=== PATIENT | female | born 1950 | race Caucasian/White ===

== ENCOUNTER 2020-01-05 12:06 | Emergency (ER) | payer MEDICARE, OTHER ==
[2020-01-05] MEDS ORDERED: ONDANSETRON HCL INJ/PF 4 MG/2 ML SDV IV ONE (12:20)
--- NOTE | 2020-01-05 12:24 | ER Document Report ---
ED Medical Screen (RME) - General Chief Complaint: Pain With Urination Stated Complaint: PAINFUL URINATION Time Seen by Provider: 01/05/20 12:08 Mode of Arrival: Medic Information source: Patient - HPI Notes: 01/05/20 12:18 69-year-old female with a history of diverticulitis and colitis presents emergency room via EMS for complaints of abdominal pain, painful urination with diarrhea that started yesterday. Patient is a poor historian. patient went to [facility] in [place] yesterday, states they gave her some fluids, did some test and discharged her. Reports pain is 4 out of 5. Denies any chest pain. States that when her pain becomes excruciating it does make her feel like she is short of breath but otherwise denies any shortness of breath. Denies any fevers or chills. Patient states that she did have incontinence due to dysuria for the last 3 weeks that has not been "treated correctly". I have greeted and performed a rapid initial assessment of this patient. A comprehensive ED assessment and evaluation of the patient, analysis of test results and completion of the medical decision making process will be conducted by additional ED providers. PHYSICAL EXAMINATION: GENERAL: Well-appearing, well-nourished and in moderate distress CV: s1, s2 regular LUNGS: No respiratory distress abd: generalized abdominal pain Musculoskeletal: Normal range of motion NEUROLOGICAL: Normal speech, in wheelchair. SKIN: Warm, Dry, normal turgor, no rashes or lesions noted.. 01/05/20 12:20 Physical Exam - Vital signs Vitals: Temp Pulse Resp BP Pulse Ox 97.4 F 77 18 144/88 H 99 01/05/20 12:13 01/05/20 12:13 01/05/20 12:13 01/05/20 12:13 01/05/20 12:13 Course - Vital Signs Vital signs: Temp Pulse Resp BP Pulse Ox 97.4 F 77 18 144/88 H 99 01/05/20 12:13 01/05/20 12:13 01/05/20 12:13 01/05/20 12:13 01/05/20 12:13
[2020-01-05 13:06] LABS: ABSOLUTE LYMPHOCYTES (AUTO) 1.2 10^3/uL (0.5-4.7); ABSOLUTE MONOCYTES (AUTO) 0.5 10^3/uL (0.1-1.4); ABSOLUTE NEUT (AUTO) 4.5 10^3/uL (1.7-8.2); BASOPHILS % (AUTO) 0.4 % (0-2); EOSINOPHILS % (AUTO) 0.4 % (0-6); HEMATOCRIT 37.3 % (36.0-47.0); HEMOGLOBIN 13.4 g/dL (12.0-15.5); LYMPHOCYTES % (AUTO) 19.7 % (13-45); MEAN CORPUSCULAR HEMOGLOBIN 32.5 pg (27.0-33.4); MEAN CORPUSCULAR HGB CONC 35.9 g/dL (32.0-36.0); MEAN CORPUSCULAR VOLUME 91 fl (80-97); MONOCYTES % (AUTO) 7.3 % (3-13); PLATELET COUNT 266 10^3/uL (150-450); RED BLOOD COUNT 4.12 10^6/uL (3.72-5.28); RED CELL DISTRIBUTION WIDTH 16.7 % (11.5-14.0); SEGMENTED NEUTROPHILS % (AUTO) 72.2 % (42-78); TOTAL CELLS COUNTED % (AUTO) 100 %; WHITE BLOOD COUNT 6.2 10^3/uL (4.0-10.5)
[2020-01-05] MEDS: MORPHINE SULFATE 10 MG/ML INJ IV PRN ×2 (13:09→17:38)
--- NOTE | 2020-01-05 13:17 | EKG REPORT ---
SEVERITY:- ABNORMAL ECG - SINUS RHYTHM LEFT AXIS DEVIATION LEFT VENTRICULAR HYPERTROPHY : Confirmed by: Ray Kwan MD 05-Jan-2020 13:16:12
[2020-01-05 13:26] LABS: ALBUMIN 4.1 g/dL (3.5-5.0); ALKALINE PHOSPHATASE 114 U/L (38-126); ANION GAP 12 (5-19); ASPARTATE AMINO TRANSFERASE 38 U/L (14-36); BILIRUBIN,TOTAL 0.7 mg/dL (0.2-1.3); BLOOD UREA NITROGEN 6 mg/dL (7-20); CALCIUM 9.9 mg/dL (8.4-10.2); CARBON DIOXIDE 22 mmol/L (22-30); CHLORIDE 91 mmol/L (98-107); GLUCOSE 110 mg/dL (75-110); POTASSIUM 3.7 mmol/L (3.6-5.0); TOTAL PROTEIN 6.7 g/dL (6.3-8.2)
--- NOTE | 2020-01-05 13:58 | RADIOLOGY REPORT (SQ) ---
EXAM DESCRIPTION: CHEST 2 VIEWS IMAGES COMPLETED DATE/TIME: 01/05/2020 1:37 pm REASON FOR STUDY: Diaphoretic COMPARISON: None. EXAM PARAMETERS: NUMBER OF VIEWS: two views TECHNIQUE: Digital Frontal and Lateral radiographic views of the chest acquired. RADIATION DOSE: NA LIMITATIONS: none FINDINGS: LUNGS AND PLEURA: No opacities, masses or pneumothorax. No pleural effusion. MEDIASTINUM AND HILAR STRUCTURES: No masses or contour abnormalities. HEART AND VASCULAR STRUCTURES: Heart normal size. No evidence for failure. BONES: No acute findings. HARDWARE: None in the chest. OTHER: No other significant finding. IMPRESSION: NO ACUTE RADIOGRAPHIC FINDING IN THE CHEST. TECHNICAL DOCUMENTATION: JOB ID: [id number] 2010 [employer]- All Rights Reserved Reading location - IP/workstation name: [email or web address]
[2020-01-05 14:02] LABS: APPEARANCE,URINE CLEAR; BILIRUBIN,URINE NEGATIVE (NEGATIVE); COLOR,URINE COLORLESS; GLUCOSE, URINE NEGATIVE (NEGATIVE); KETONES,URINE NEGATIVE (NEGATIVE); LEUKOCYTE ESTERASE,URINE NEGATIVE (NEGATIVE); NITRITE,URINE NEGATIVE (NEGATIVE); PROTEIN,URINE NEGATIVE (NEGATIVE); URINE SPECIFIC GRAVITY 1.005; UROBILINOGEN,URINE NEGATIVE mg/dL (<2.0)
[2020-01-05] MEDS ORDERED: RINGERS SOLUTION,LACTATED 1,000 ML IV ONE (14:35)
--- NOTE | 2020-01-05 15:39 | RADIOLOGY REPORT (SQ) ---
EXAM DESCRIPTION: CT ABD/PELVIS WITH IV ONLY IMAGES COMPLETED DATE/TIME: 01/05/2020 1:53 pm REASON FOR STUDY: abd pain COMPARISON: None. TECHNIQUE: CT scan of the abdomen and pelvis performed using helical scanning technique with dynamic intravenous contrast injection. No oral contrast. Images reviewed with lung, soft tissue, and bone windows. Reconstructed coronal and sagittal MPR images reviewed. Delayed images for evaluation of the urinary system also acquired. All images stored on PACS. All CT scanners at this facility use dose modulation, iterative reconstruction, and/or weight based d osing when appropriate to reduce radiation dose to as low as reasonably achievable (ALARA). [facility]: Dose Right [facility]: CareDose [facility]: Dose Right [facility]: Teradose 4D [facility]: Digerati CONTRAST TYPE AND DOSE: contrast/concentration: Isovue 350.00 mmol/ml; Total Contrast Delivered: 100 .0 ml; Total Saline Delivered: 72.0 ml RENAL FUNCTION: Creatinine 0.7 RADIATION DOSE: CT Rad equipment meets quality standard of care and radiation dose reduction techniq ues were employed. CTDIvol: 17.6 - 20.4 mGy. DLP: 2333 mGy-cm.. LIMITATIONS: None. FINDINGS: LOWER CHEST: There are scattered subtle nonspecific bibasilar peripheral prominent ground- glass opacities. Coronary atherosclerosis. LIVER: Normal size. No masses. No dilated ducts. SPLEEN: Normal size. No focal lesions. PANCREAS: No masses. No significant calcifications. No adjacent inflammation or peripancreatic fluid collections. Pancreatic duct not dilated. GALLBLADDER: Absent. ADRENAL GLANDS: No significant masses or asymmetry. RIGHT KIDNEY AND URETER: No solid masses. 3.4 cm lower pole right renal cyst. No significant calci fications. No hydronephrosis or hydroureter. LEFT KIDNEY AND URETER: No solid masses. No significant calcifications. No hydronephrosis or hydr oureter. AORTA AND VESSELS: No aneurysm. No dissection. Renal arteries, SMA, celiac without stenosis. RETROPERITONEUM: No retroperitoneal adenopathy, hemorrhage or masses. BOWEL AND PERITONEAL CAVITY: No evidence of intestinal obstruction. No focal bowel wall thickening. Few scattered colonic diverticula. APPENDIX: Surgically absent. PELVIS: Unremarkable urinary bladder. Status post hysterectomy. No free fluid or lymphadenopathy. ABDOMINAL WALL: No masses. No hernias. BONES: No acute bony abnormality. No discrete lytic lesions. Sclerotic focus within the left femora l head suggestive of avascular necrosis. Partially visualized right hip arthroplasty. OTHER: No other significant finding. IMPRESSION: 1. Scattered subtle bibasilar peripheral prominent ground-glass opacities. Imaging fea tures can be seen with Covid-19 pneumonia, though are nonspecific and can occur with a variety of inf ectious and noninfectious processes. 2. No evidence of acute intra-abdominal/pelvic process. Incidental findings as above. Findings discussed with Aminah Simms at 1427 hours on 01/05/2020. TECHNICAL DOCUMENTATION: JOB ID: [id number] Quality ID # [id number]: Final reports with documentation of one or more dose reduction techniques (e.g., Au tomated exposure control, adjustment of the mA and/or kV according to patient size, use of iterative reconstruction technique) 2010 [employer]- All Rights Reserved Reading location - IP/workstation name: [email or web address]
--- NOTE | 2020-01-05 16:17 | ER Document Report ---
ED GI/ <HORTENSIAARMINDA - Last Filed: 01/06/20 05:35> - General Mode of Arrival: Medic Information source: Patient TRAVEL OUTSIDE OF THE [place] IN LAST 30 DAYS: No <BEBA DILLARD - Last Filed: 01/06/20 15:50> - General Chief Complaint: Lower Abdominal Pain Stated Complaint: PAINFUL URINATION Time Seen by Provider: 01/05/20 12:08 Primary Care Provider: GIULIA MARTIN PA-C [Primary Care Provider] - Follow up as needed Notes: 69-year-old female past medical history significant for diverticulitis, colitis, hypertension, bipolar presents to the emergency room complaining of worsening ab dominal cramping, painful urination, that has been ongoing for several weeks. States she started with diarrhea this morning and only had 3 episodes at home. States she saw her primary care physician 2 days ago was diagnosed with a current UTI was placed on Cipro. Also states that she was seen at [facility] yesterday had labs done they told her there was nothing wrong and discharged home. Patient still complains of frequent urination with cramping abdominal pain. She denies any recent travel. She denies any COVID-19 exposure. States she had a negative cover test 2 weeks ago because she was scheduled for colonoscopy and an endoscopy which she states were both normal. Patient states she lives alone does not have anyone at home to care for her or help her denies any frequent falls. States she is taking her medications as prescribed. Denies any chest pain, shortness of breath, no difficulty breathing. (BEBA DILLARD) - Related Data Allergies/Adverse Reactions: codeine Allergy (Verified 01/05/20 12:25) Past Medical History - General Information source: Patient - Social History Smoking Status: Never Smoker Frequency of alcohol use: None Drug Abuse: None Family History: Other - Patient poor historian does not know her family history Patient has homicidal ideation: No <BEBA DILLARD - Last Filed: 01/06/20 15:50> Review of Systems - Review of Systems Constitutional: No symptoms reported EENT: No symptoms reported Cardiovascular: No symptoms reported Respiratory: No symptoms reported Gastrointestinal: Abdominal pain, Diarrhea. denies: Nausea, Vomiting Genitourinary: Frequency Musculoskeletal: No symptoms reported Skin: No symptoms reported Neurological/Psychological: No symptoms reported -: Yes All other systems reviewed and negative <BEBA DILLARD - Last Filed: 01/06/20 15:50> Physical Exam - General General appearance: Appears well, Alert In distress: Mild - HEENT Head: Normocephalic, Atraumatic Eyes: Normal Extraocular movements intact: Yes Pupils: PERRL - Respiratory Respiratory status: Tachypnea Chest status: Nontender Breath sounds: Normal Chest palpation: Normal - Cardiovascular Rhythm: Regular Heart sounds: Normal auscultation Murmur: No - Abdominal Inspection: Normal Distension: No distension Bowel sounds: Normal Tenderness: Tender - Tenderness in the lower pelvic region, no guarding, no rebound Organomegaly: No organomegaly - Back Back: Normal, Nontender. 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 - Psychological Associated symptoms: Normal affect, Normal mood, Decreased appetite - Skin Skin Temperature: Warm Skin Moisture: Dry Skin Color: Normal <BEBA DILLARD - Last Filed: 01/06/20 15:50> - Vital signs Vitals: Temp Pulse Resp BP Pulse Ox 97.4 F 77 18 144/88 H 99 01/05/20 12:13 01/05/20 12:13 01/05/20 12:13 01/05/20 12:13 01/05/20 12:13 Course - Laboratory Result Diagrams: 01/06/20 02:10 01/06/20 02:10 <ARMINDA BOLAÑOS - Last Filed: 01/06/20 05:35> - Laboratory Result Diagrams: 01/06/20 08:02 01/06/20 08:02 - Diagnostic Test Radiology reviewed: Reports reviewed - EKG Interpretation by Me EKG shows normal: Sinus rhythm - 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 I went and evaluated the patient. Patient is alert, oriented, denies any acute complaints. She does not have any chest pain or shortness of breath. She states she feels well other than some mild back pain which she reports is chronic for her. Her lungs are clear and equal bilaterally. She will be given a 1 L normal saline bolus to see if this helps with her blood pressure. We will also obtain repeat labs. I did consult attending physician Dr. Leora Morelos regarding this patient and her hypotension. We will continue to closely monitor. Patient's nurse has been reevaluating patient's blood pressure. Her blood pressure has come up. She continues to be asymptomatic. Currently awaiting repeat labs. Labs have resulted. Her hemoglobin has dropped although there is some question if this is delusional. Her creatinine has risen. I went in to reevaluate the patient. The patient continues to be alert, oriented, no acute distress noted. She denies any complaints at this time. She denies any passage of any bloody or dark stools. I did do a Hemoccult which was negative for any blood. I did find 2 pills in the bed with her when I went in to do the Hemoccult. These were lisinopril 10 mg tablets. The patient reports that she took her nighttime medications out of her belongings. For safety the medications were relocated to the nurses station. Discussed situation with attending Dr. Denny who advises that I should call the hospitalist to re-consult due to her change in labs. 01/06/20 04:53 Called and discussed patients repeat labs with Dr. Baker. He does not feel patient needs to be admitted at this time. We will re-check labs in the am. Orders placed for 0800 for repeat CBC, BMP and lactic. (ARMINDA BOLAÑOS) 01/05/20 16:16 Patient is resting comfortably currently denying any pain. Reviewed lab, x-ray, and CAT scan results with patient. Aware of need for COVID testing. Patient states she did have a negative cover test 2 weeks ago. And denies any recent travel or COVID-19 exposure. Discussed with her the need to be tested secondary to CT findings. Patient is agreeable to be tested. Patient also continues to be short of breath. Case was staffed with ED physician Dr. Davidson who agrees on need for a CTA to rule out a PE. She is agreeable to testing. We will also get ABG, patient will be placed on 2 L of nasal cannula oxygen after the ABG is completed. 01/05/20 17:54 Patient was seen and evaluated by myself and Dr. Davidson will call hospitalist and attempt to admit for hyponatremia and elevated lactic with no known source. 01/05/20 19:02 Was seen and evaluated by hospitalist nurse practitioner Kimberly Brush who does not feel that patient does not meet criteria for in-house admission. Recommendations were made for psych consult as well as social work consult for safety issues. As patient lives alone is not taking care of her self, is not taking her medications as prescribed. Has no one to help her at home. We will make her social hold and wait for eval's by psychiatry and social work. 01/05/20 19:50 01/05/20 20:10 patient care was transferred to Arminda Bolaños NP, discussed all findings and need for Social Hold for Psych and Social Work consults tomorrow. 01/06/20 13:26 Patient currently resting comfortably sitting up in bed eating. She offers no complaints at this time. Pending psych and social work recommendations 01/06/20 15:46 Patient is resting comfortably she has no acute distress at this time. Vital signs and labs are stable. Patient has been seen and evaluated by social work administrator as well as our mental health department. Home health and social work outpatient has been set up by [facility] ED. patient is aware that this is been scheduled. Has a friend who is picking her up and driving her home. She is to follow-up outpatient with her primary care physician as well as her mental health specialist. Patient was given strict return to the emergency room guidelines. Return for any new or worsening symptoms. All questions were answered. Patient verbalized understanding and agrees with plan of care. 01/06/20 15:50 (BEBA DILLARD) - Vital Signs Vital signs: Temp Pulse Resp BP Pulse Ox 98.0 F 80 16 102/64 94 01/06/20 04:25 01/06/20 04:25 01/06/20 04:25 01/06/20 04:25 01/06/20 04:25 - Laboratory Laboratory results interpreted by me: 01/05/20 01/05/20 01/05/20 12:53 12:53 12:53 RBC Hgb Hct RDW 16.7 H Carbonic Acid ABG pH ABG pCO2 ABG HCO3 ABG Total CO2 Sodium 125.1 L Chloride 91 L BUN 6 L Creatinine Est GFR ( Amer) Est GFR (MDRD) Non-Af Glucose Lactic Acid 2.3 H Calcium AST 38 H Creatine Kinase Total Protein Albumin 01/05/20 01/05/20 01/06/20 12:53 16:58 02:10 RBC 3.38 L Hgb 10.8 L D Hct 31.8 L RDW 16.6 H Carbonic Acid 0.67 L ABG pH 7.52 H ABG pCO2 22.1 L ABG HCO3 17.8 L ABG Total CO2 18.5 L Sodium Chloride BUN Creatinine Est GFR ( Amer) Est GFR (MDRD) Non-Af Glucose Lactic Acid Calcium AST Creatine Kinase 152 H Total Protein Albumin 01/06/20 01/06/20 01/06/20 02:10 02:10 08:02 RBC 3.56 L Hgb 11.4 L Hct 33.4 L RDW 17.5 H Carbonic Acid ABG pH ABG pCO2 ABG HCO3 ABG Total CO2 Sodium 127.4 L Chloride BUN Creatinine 1.36 H Est GFR ( Amer) 46 L Est GFR (MDRD) Non-Af 38 L Glucose 134 H Lactic Acid 2.5 H Calcium 8.3 L AST Creatine Kinase Total Protein 5.1 L Albumin 2.9 L 01/06/20 08:02 RBC Hgb Hct RDW Carbonic Acid ABG pH ABG pCO2 ABG HCO3 ABG Total CO2 Sodium 127.1 L Chloride 95 L BUN Creatinine Est GFR ( Amer) 55 L Est GFR (MDRD) Non-Af 46 L Glucose 125 H Lactic Acid Calcium AST Creatine Kinase Total Protein Albumin - EKG Interpretation by Me Additional EKG results interpreted by me: 01/05/20 12:40 EKG was interpreted by Ed MD Dr. Parker Sinus rhythm Left axis deviation LV[facility] No acute STEMI (BEBA DILLARD) Discharge <ARMINDA BOLAÑOS - Last Filed: 01/06/20 05:35> <BEBA DILLARD - Last Filed: 01/06/20 15:50> - Discharge Clinical Impression: Urinary frequency, Chronic hyponatremia Condition: Stable Disposition: HOME, SELF-CARE Instructions: Hyponatremia ([facility]), Hypotension ([facility]) Additional Instructions: Continue with your current medications. Increase your fluid intake. Avoid caffeine products. Outpatient follow-up with your primary care physician and your therapist. Home health and social work has been scheduled through [facility]. Return to the emergency room for any new or worsening symptoms. Referrals: GIULIA MARTIN PA-C [Primary Care Provider] - Follow up as needed
[2020-01-05 17:20] LABS: ARTERIAL BLOOD H2CO3 0.67 mmol/L (1.05-1.35); ARTERIAL BLOOD HCO3 17.8 mmol/L (20-24); ARTERIAL BLOOD PCO2 22.1 mmHg (35-45); ARTERIAL BLOOD PH 7.52 (7.35-7.45); ARTERIAL BLOOD PO2 94.9 mmHg (80-100); ARTERIAL BLOOD TOTAL CO2 18.5 mmol/L (21-25)
[2020-01-05 17:24] LABS: ARTERIAL BLOOD FIO2 ROOM AIR
--- NOTE | 2020-01-05 17:35 | RADIOLOGY REPORT (SQ) ---
EXAM DESCRIPTION: NM LUNG PERF SCAN IMAGES COMPLETED DATE/TIME: 01/05/2020 5:22 pm REASON FOR STUDY: dyspnea COMPARISON: None. RADIONUCLIDE AND DOSE: 5.46 millicuries TC-99m MAA Intravenous TECHNIQUE: Eight views of the lungs acquired post ventilation of DTPA aerosol. Eight matching views of the lungs acquired following injection of MAA. LIMITATIONS: None. FINDINGS: PERFUSION: Perfusion images with normal homogenous activity and no wedge-shaped or segment al defects. No ventilation-perfusion mismatches. OTHER: No other significant finding. IMPRESSION: NORMAL PERFUSION LUNG SCAN. NEGATIVE FOR PULMONARY EMBOLI. TECHNICAL DOCUMENTATION: JOB ID: [id number] 2010 [employer]- All Rights Reserved Reading location - IP/workstation name: [email or web address]
--- NOTE | 2020-01-05 18:07 | ER Document Report ---
Doctor's Note Notes: 01/05/20 18:03 This is a 69-year-old female I was asked to evaluate along with midlevel provider. I have reviewed their work-up and interviewed the patient at the bedside and reviewed pertinent physical exam. This is an elderly lady within the last 6 months who has moved to a new home with limited social support. She has a history of bipolar disorder and a number of other relatively chronic medical conditions currently taking a large number of medications. She has visited emergency department's here and in [facility] a total of 5 times within the last week. She is a rather poor historian but complains primarily at this time of generalized weakness and polyuria. Extensive work-up is shown that this lady is mildly hyponatremic and she also has an elevated lactate of 2.3. She has no clear-cut source of infection and is afebrile here. This is probably related to medications. She is clearly having difficulty caring for herself at this point and I would feel that she would be at a significant risk of falling and sustaining injury if she is discharged this time. I have recommended evaluation by the hospitalist for overnight observation with IV hydration and follow-up labs.
--- NOTE | 2020-01-05 19:27 | PDOC CONSULTATION ---
Consultation Consult Date: 01/05/20 Provider Consulted: ADALID ENAMORADO History of Present Illness Admission Date/PCP: GIULIA MARTIN PA-C Patient complains of: generalized weakness History of Present Illness: BALDO GRAHAM is a 69 year old female with a past medical history significant for bipolar disorder, diverticulitis, and colitis who reports multiple complaints and provider visits over the last week. - [facility] numerous complaints (muscle cramping, generalized weakness, falls, poor appetite, abdominal pain, back pain, nausea without emesis, and diarrhea). - She reports that she was seen by her primary care provider on Friday for increased urinary frequency; reports that she was started on an antibiotic for UTI. - She reports that she had an EGD and colonoscopy by Dr. Barkley completed last week; diagnosis of diverticulosis without diverticulitis, irritable bowel syndrome diarrhea predominant, and gastritis. She states that she was started on a PPI and fiber. She reports that her follow-up for biopsy of polyps is scheduled for Friday. - Patient states that she presented to the emergency department here today with generalized weakness, abdominal pain, dysuria, and diarrhea that began yesterday. - Upon my evaluation of the patient, her primary complaint is muscle cramps to bilateral lower extremities, bilateral pedal edema (none present at this time), and neuropathy that prohibit her ability to ambulate and care for herself. When prompted to discuss her other provider visits and evaluations, the patient becomes very disorganized in her history and is unable to clearly provide a chronological timeline of her symptoms, provider visits, and recommendations. Further, she was unable to elaborate on her concerns prompting her ED visit today (sought clarification on muscle cramping/leg edema versus abdominal discomfort and diarrhea). Unfortunately, the patient became very tearful, emotionally distressed, and repetitively asked that we not discharge her before we find out what is wrong with her, " I know all of my tests are normal, but I know something is wrong." --- Evaluation in the emergency department was thorough; Vital signs are stable (afebrile, heart rate 60s to 70s, normotensive, respiratory rate 16-20, SPO2 within normal limits on room air). Laboratory evaluation was overall benign. CBC normal. Chemistry reveals hyponatremia (NA 125; confirmed to be chronic per patient report and attributed to her psychiatric medications and furosemide use). A ABG revealed respiratory alkalosis (patient observed to be hyperventilating during our discussion). Negative urinalysis. Notably, her lactic acid was elevated to 2.3 without clear cause. COVID-19 pending. Chest x-ray is benign. CT abdomen pelvis incidentally found groundglass opacities to the bilateral lung bases. Otherwise no acute findings. VQ scan negative for PE. Past Medical History Endocrine Medical History: Reports: Obesity Renal/ Medical History: Reports: None Malignancy Medical History: Reports: None GI Medical History: Reports: Gastroesophageal Reflux Disease, Other - Diverticulosis, IBS D Psychiatric Medical History: Reports: Bipolar Disorder, Depression, General Anxiety Disorder Hematology: Reports: None Infectious Medical History: Reports: None Social History Information Source: Patient Lives with: Alone Smoking Status: Unknown if Ever Smoked Electronic Cigarette use?: No Frequency of Alcohol Use: None Hx Recreational Drug Use: No Hx Prescription Drug Abuse: No Family History Parental Family History Reviewed: Yes Children Family History Reviewed: Yes Sibling(s) Family History Reviewed.: Yes Medication/Allergy Allergies/Adverse Reactions: codeine Allergy (Verified 01/05/20 12:25) Review of Systems Constitutional: PRESENT: anorexia, fatigue, weakness. ABSENT: chills, fever(s), headache(s), weight gain, weight loss Eyes: ABSENT: visual disturbances Ears: ABSENT: hearing changes Cardiovascular: PRESENT: edema. ABSENT: chest pain, dyspnea on exertion, orthropnea, palpitations Respiratory: ABSENT: cough, hemoptysis Gastrointestinal: PRESENT: abdominal pain, diarrhea, nausea. ABSENT: constipation, hematemesis, hematochezia, vomiting Genitourinary: PRESENT: dysuria. ABSENT: hematuria Musculoskeletal: PRESENT: back pain. ABSENT: joint swelling Integumentary: PRESENT: diaphoresis. ABSENT: rash, wounds Neurological: PRESENT: frequent falls, paresthesias, tingling, weakness. ABSENT: abnormal gait, abnormal speech, confusion, dizziness, focal weakness, syncope Psychiatric: PRESENT: anxiety, depression. ABSENT: homidical ideation, suicidal ideation Endocrine: ABSENT: cold intolerance, heat intolerance, polydipsia, polyuria Hematologic/Lymphatic: ABSENT: easy bleeding, easy bruising Physical Exam Vital Signs: Temp Pulse Resp BP Pulse Ox 97.4 F 77 16 153/71 H 98 01/05/20 12:13 01/05/20 12:13 01/05/20 16:01 01/05/20 16:01 01/05/20 16:01 Intake & Output 01/04/20 01/05/20 01/06/20 06:59 06:59 06:59 Intake Total 1000 Balance 1000 Weight 99.79 kg General appearance: PRESENT: no acute distress, disheveled, obese, well- developed, well-nourished Head exam: PRESENT: atraumatic, normocephalic Eye exam: PRESENT: conjunctiva pink, EOMI, PERRLA. ABSENT: scleral icterus Mouth exam: PRESENT: moist, tongue midline Respiratory exam: PRESENT: clear to auscultation bernie, symmetrical, tachypnea - Intermittent periods of tachypnea; appears to be related to emotional distress, unlabored, other - Maintaining oxygen saturations of 98% or higher on room air. ABSENT: rales, rhonchi, wheezes Cardiovascular exam: PRESENT: RRR, +S1, +S2. ABSENT: diastolic murmur, rubs, systolic murmur Pulses: PRESENT: normal dorsalis pedis pul Vascular exam: PRESENT: normal capillary refill GI/Abdominal exam: PRESENT: normal bowel sounds, soft, tenderness. ABSENT: distended, guarding, mass, organolmegaly, rebound Rectal exam: PRESENT: deferred Extremities exam: PRESENT: full ROM. ABSENT: calf tenderness, clubbing, pedal edema, +1 edema Neurological exam: PRESENT: alert, awake, oriented to person, oriented to place, oriented to time, oriented to situation, CN II-XII grossly intact. ABSENT: motor sensory deficit Psychiatric exam: PRESENT: anxious, depressed Skin exam: PRESENT: dry, intact, warm. ABSENT: cyanosis, rash Results Laboratory Results: 01/05/20 12:53 01/05/20 12:53 01/05/20 01/05/20 01/05/20 12:53 12:53 12:53 WBC 6.2 RBC 4.12 Hgb 13.4 Hct 37.3 MCV 91 MCH 32.5 MCHC 35.9 RDW 16.7 H Plt Count 266 Seg Neutrophils % 72.2 Carbonic Acid HCO3/H2CO3 Ratio ABG pH ABG pCO2 ABG pO2 ABG HCO3 ABG O2 Saturation ABG Base Excess FiO2 Sodium 125.1 L Potassium 3.7 Chloride 91 L Carbon Dioxide 22 Anion Gap 12 BUN 6 L Creatinine 0.77 Est GFR ( Amer) > 60 Glucose 110 Lactic Acid 2.3 H Calcium 9.9 Total Bilirubin 0.7 AST 38 H Alkaline Phosphatase 114 Total Protein 6.7 Albumin 4.1 Lipase 104.3 Urine Color Urine Appearance Urine pH Ur Specific [place] Urine Protein Urine Glucose (UA) Urine Ketones Urine Blood Urine Nitrite Ur Leukocyte Esterase Urine WBC (Auto) Urine RBC (Auto) 01/05/20 01/05/20 13:20 16:58 WBC RBC Hgb Hct MCV MCH MCHC RDW Plt Count Seg Neutrophils % Carbonic Acid 0.67 L HCO3/H2CO3 Ratio 26:1 ABG pH 7.52 H ABG pCO2 22.1 L ABG pO2 94.9 ABG HCO3 17.8 L ABG O2 Saturation 98.0 ABG Base Excess -3.0 FiO2 ROOM AIR Sodium Potassium Chloride Carbon Dioxide Anion Gap BUN Creatinine Est GFR ( Amer) Glucose Lactic Acid Calcium Total Bilirubin AST Alkaline Phosphatase Total Protein Albumin Lipase Urine Color COLORLESS Urine Appearance CLEAR Urine pH 8.0 Ur Specific [place] 1.005 Urine Protein NEGATIVE Urine Glucose (UA) NEGATIVE Urine Ketones NEGATIVE Urine Blood NEGATIVE Urine Nitrite NEGATIVE Ur Leukocyte Esterase NEGATIVE Urine WBC (Auto) 0 Urine RBC (Auto) 0 01/05/20 01/05/20 01/05/20 12:53 12:53 12:53 Creatine Kinase 152 H CK-MB (CK-2) 1.30 Troponin I < 0.012 01/05/20 17:52 Creatine Kinase CK-MB (CK-2) Troponin I < 0.012 Impressions: Abdomen/Pelvis CT 01/05/20 12:10 IMPRESSION: 1. Scattered subtle bibasilar peripheral prominent ground-glass opacities. Imaging features can be seen with Covid-19 pneumonia, though are nonspecific and can occur with a variety of infectious and noninfectious process es. 2. No evidence of acute intra-abdominal/pelvic process. Incidental findings as above. Findings discussed with Aminah Simms at 1427 hours on 01/05/2020. Chest X-Ray 01/05/20 12:12 IMPRESSION: NO ACUTE RADIOGRAPHIC FINDING IN THE CHEST. Lung Scan-VQ NM 01/05/20 16:23 IMPRESSION: NORMAL PERFUSION LUNG SCAN. NEGATIVE FOR PULMONARY EMBOLI. Assessment and Plan - Diagnosis (1) Lactic acidosis Is this a current diagnosis for this admission?: Yes Plan: Mildly elevated lactic acid to 2.3. Vital signs are stable. No indications of infectious source at this time. Perhaps related to medication process. She is already received 1 L IV fluids by ED provider. Recommend continue to monitor for evidence of systemic infection. (2) Chronic hyponatremia Is this a current diagnosis for this admission?: Yes Plan: Mild hyponatremia; 125. Patient confirms she has a history of hyponatremia. She tells me that she was told that her sodium was low when she was seen at [facility] earlier this week. She confirms that she was told at that time that it was likely related to her home medication regiment. Unfortunately, she cannot recall what her exact numbers were. The patient is alert and oriented x4. Hyponatremia is likely chronic. She is already received 1 L IV fluids by the ED provider. Would recommend moderate fluid restriction; 1.5 L daily. Liberalize dietary sodium (regular diet). Monitor for polydipsia (this would explain both her hyponatremia as well as her urinary frequency complaint). Consider thyroid panel. As the patient is remaining in the ED overnight for psychiatric evaluation in the morning; may be worthwhile to repeat chemistry in the morning to establish stability. (3) Generalized weakness Is this a current diagnosis for this admission?: Yes Plan: Recommend discharge planning/social work consultation. Patient would benefit from home health services. Given her age and underlying medical conditions, she may also benefit from [facility] placement. However, recognize this would need to be arranged as an outpatient through her PCP and highly dependent upon her financial/insurance status. (4) Falls Is this a current diagnosis for this admission?: Yes Plan: Fall precautions. (5) Diarrhea Qualifiers: Diarrhea type: functional diarrhea Qualified Code(s): K59.1 - Functional diarrhea Is this a current diagnosis for this admission?: Yes Plan: Patient confirms diagnosis of IBS-D by Dr. Barkley. Continue bowel regiment w/ fiber supplementation. Follow up with Dr. Barkley, as scheduled, on Friday. Would defer novel medication management (i.e. Rifaximin, Viberzi, etc) to Dr. Barkley. She might benefit from Questran (bile acid binder) or Bentyl. (6) Bipolar disorder Is this a current diagnosis for this admission?: Yes Plan: Strongly recommend psychiatric evaluation with medication review. If appropriate, some tricyclic antidepressants have been used effectively for IBS-D. Certainly her medication regiment may be at the root of her chronic hyponatremia. Patient may also benefit from a community steel buffer or an ACT team support system, if available. Discharge planning is consulted. - Time Time Spent with patient: 35 or more minutes
[2020-01-05] MEDS ORDERED: SILVER SULFADIAZINE 1% CREAM 400 GM TP ONE (23:20)
[2020-01-05] MEDS ORDERED: MORPHINE SULFATE 10 MG/ML INJ IV ONE (23:20)
[2020-01-05] MEDS ORDERED: CEPHALEXIN 500 MG CAPSULE PO ONE (23:20)
[2020-01-06 02:31] LABS: ABSOLUTE LYMPHOCYTES (AUTO) 0.9 10^3/uL (0.5-4.7); ABSOLUTE MONOCYTES (AUTO) 0.6 10^3/uL (0.1-1.4); ABSOLUTE NEUT (AUTO) 4.4 10^3/uL (1.7-8.2); BASOPHILS % (AUTO) 0.3 % (0-2); EOSINOPHILS % (AUTO) 0.5 % (0-6); HEMATOCRIT 31.8 % (36.0-47.0); LYMPHOCYTES % (AUTO) 15.6 % (13-45); MEAN CORPUSCULAR HGB CONC 33.9 g/dL (32.0-36.0); MEAN CORPUSCULAR VOLUME 94 fl (80-97); MONOCYTES % (AUTO) 10.8 % (3-13); PLATELET COUNT 216 10^3/uL (150-450); RED BLOOD COUNT 3.38 10^6/uL (3.72-5.28); RED CELL DISTRIBUTION WIDTH 16.6 % (11.5-14.0); SEGMENTED NEUTROPHILS % (AUTO) 72.8 % (42-78); TOTAL CELLS COUNTED % (AUTO) 100 %
[2020-01-06 02:32] LABS: HEMOGLOBIN 10.8 g/dL (12.0-15.5)
[2020-01-06 02:46] LABS: ALBUMIN 2.9 g/dL (3.5-5.0); ALKALINE PHOSPHATASE 65 U/L (38-126); ANION GAP 6 (5-19); ASPARTATE AMINO TRANSFERASE 31 U/L (14-36); BILIRUBIN,TOTAL 0.3 mg/dL (0.2-1.3); BLOOD UREA NITROGEN 7 mg/dL (7-20); CALCIUM 8.3 mg/dL (8.4-10.2); CARBON DIOXIDE 23 mmol/L (22-30); CHLORIDE 98 mmol/L (98-107); GLUCOSE 134 mg/dL (75-110); TOTAL PROTEIN 5.1 g/dL (6.3-8.2)
[2020-01-06 04:26] VITALS: BP 102/64
[2020-01-06 08:12] LABS: ABSOLUTE LYMPHOCYTES (AUTO) 1.3 10^3/uL (0.5-4.7); ABSOLUTE MONOCYTES (AUTO) 0.6 10^3/uL (0.1-1.4); BASOPHILS % (AUTO) 0.3 % (0-2); HEMATOCRIT 33.4 % (36.0-47.0); HEMOGLOBIN 11.4 g/dL (12.0-15.5); LYMPHOCYTES % (AUTO) 26.5 % (13-45); MEAN CORPUSCULAR HGB CONC 34.1 g/dL (32.0-36.0); MEAN CORPUSCULAR VOLUME 94 fl (80-97); MONOCYTES % (AUTO) 12.4 % (3-13); PLATELET COUNT 203 10^3/uL (150-450); RED BLOOD COUNT 3.56 10^6/uL (3.72-5.28); RED CELL DISTRIBUTION WIDTH 17.5 % (11.5-14.0); SEGMENTED NEUTROPHILS % (AUTO) 59.8 % (42-78); TOTAL CELLS COUNTED % (AUTO) 100 %
[2020-01-06 08:30] LABS: ANION GAP 7 (5-19); BLOOD UREA NITROGEN 9 mg/dL (7-20); CALCIUM 8.7 mg/dL (8.4-10.2); CARBON DIOXIDE 25 mmol/L (22-30); CHLORIDE 95 mmol/L (98-107); GLUCOSE 125 mg/dL (75-110); POTASSIUM 3.8 mmol/L (3.6-5.0)
[2020-01-06] MEDS ORDERED: ACETAMINOPHEN 325 MG TABLET PO ONE (14:21)
[2020-01-06] MEDS ORDERED: ACETAMINOPHEN 325 MG TABLET ONE (14:22)
--- NOTE | 2020-01-06 15:46 | PSYCHOLOGICAL NOTE ---
Psych Note - Psych Note Date seen by psych provider: 01/06/20 Time seen by psych provider: 11:10 Psych Note: Reason for consult possible medication recommendations Patient reports she has a diagnosis of bipolar and is in the care of a psychiatrist. She discloses that it took a year to stabilize her medications and is not interested in medication adjustments. She reports that she is here for medical concerns and confirm she has been to multiple emergency departments "because they do not know what is wrong." Patient reports she does not want to leave until she knows what is wrong; "I cannot keep doing this... I get so dehydrated I cannot move so I have to call EMS." She discloses that she has medical provider in the community also and does work with a therapist. She reports that she has a support network of friends. Patient discusses current medications she takes which includes Depakote and Geodon. She reports that she has dealt with her bipolar symptoms all her adult life and even if her psychiatric medications are contributing to her sodium levels she is worried about changing them. Patient is alert and orientated to person, place, time and circumstance. Mood is euthymic with congruent affect until discussing medical concerns at which point patient becomes tearful. Patient denies suicidal and homicidal ideation. Delusions are absent behaviors congruent with an intact reality based presentation i.e. organized and linear thought process. Eye contact was well maintained. Conversational speech is within normal rate, tone and prosody. Intellectual abilities appear to be within the average range. Attention and concentration are good. Insight, judgment, impulse control are fair. Clinical presentation: Anxiety surrounding possible medical concerns Stage of life difficulties Impression\\plan: Patient is cleared from acute psychiatric services. Patient declines assistance with medication recommendations reporting she has an outpatient mental health provider. She reports that it took a year for medication stabilization and is not interested in doing medication adjustments. Dr. Franklin was consulted to care management of this patient; tending physicians in agreement with recommendations and disposition.
== END 2020-01-06 16:00 | disposition home or self-care (01) ==
LOC: ER 12:06
DX: R35.0 Frequency of micturition (principal); E87.1 Hypo-osmolality and hyponatremia; R10.30 Lower abdominal pain, unspecified; R30.9 Painful micturition, unspecified; R19.7 Diarrhea, unspecified; I10 Essential (primary) hypertension; Z88.8 Allergy status to other drugs, medicaments and biological substances; Z20.828 Contact with and (suspected) exposure to other viral communicable diseases
CPT/HCPCS: 93005; 99285; 96361; 96374; 96375; 36415; 82553; 82803; 82550; 83605; 83690; 85025; 82270; 87070; 80053; 81001; 84484; 71046; 78582; 74177; 93010; U0003; A9540; A9567; A9270; J2270; J2405; J7120; Q9969; C9803; 87635